=== PATIENT | female | born 1975 ===

== ENCOUNTER 2019-01-31 18:26 | Emergency (ER) | payer SELFPAY ==
[2019-01-31] MEDS ORDERED: NORMAL SALINE 1,000 ML IV.SOLN IV ONE (21:00)
[2019-01-31] MEDS ORDERED: TAMSULOSIN HCL 0.4 MG CAP.ER.24H PO ONE (21:00)
[2019-01-31] MEDS ORDERED: cefTRIAXone SODIUM 1 GM INJ ONE (21:00)
[2019-01-31] MEDS ORDERED: 0.9 % SODIUM CHLORIDE 50 ML IV.SOLN IV ONE (21:00)
[2019-01-31] MEDS ORDERED: KETOROLAC TROMETHAMINE 30 MG/1ML VIAL ONE (21:00)
[2019-02-10 08:53] LABS: BASOPHILS % 0.4 % (0.0-1.5); NEUTROPHILS # 5.9 # k/uL (1.4-7.7)
[2019-02-10 08:55] LABS: eGFR (Non-African) > 60
[2019-02-10 08:57] LABS: CANNABINOIDS NON NEGATIVE ng/mL (< 50)
[2019-02-10 08:58] LABS: APPEARANCE,URINE CLOUDY (CLEAR); COLOR,URINE YELLOW (YELLOW); METHYLENEDIOXYMETHAMPHETAMINE NEGATIVE ng/mL (<500); OCCULT BLOOD,URINE 2+ (NEGATIVE); PH URINE 6.5 (5.0 - 8.0); URINE HCG NEGATIVE (NEGATIVE); UROBILINOGEN URINE 0.2 Eu (0.2-1.0)
--- NOTE | 2019-02-22 13:33 | Diagnostic Imaging Report ---
SMITA SOLIS (COMMUNITY RECREATION COORDINATOR) - ER [facility] [address] [facility].[address] [id number] Report Submission Date: Jan 31, 2019 9:46:58 PM CDT Patient Study Name: IGNACIO CROWDER Date: Jan 31, 2019 9:18:00 PM CDT Modality Type: CT\SR Gender: F Description: CT A/P W/ CONTRAST : 71 Institution: [facility] Physician: SMITA SOLIS (COMMUNITY RECREATION COORDINATOR) - ER Computed tomography abdomen pelvis with contrast History: Left upper quadrant pain Findings: Transverse abdomen and pelvis sections are obtained after 90 mL intravenous Omnipaque 350. The lung bases, liver, pancreas, adrenals, spleen, right kidney, great vessels, mesenteric structures, and bowel loops are unremarkable. The appendix is normal. Cholecystectomy has been performed. L4-5 degenerative disc disease and disc bulging are observed. Mild left obstructive uropathy there is related to a 3 mm proximal ureteral stone. A small left renal cyst is present. Left renal collecting system and ureteral urothelial thickening raises the possibility of superimposed infection. Pelvic sections reveal borderline mural thickening of the sigmoid colon and rectum. The uterus is elongated. A 2.6 cm left adnexal cyst is present. The uterus and right ovary are otherwise normal. The urinary bladder is unremarkable. Impression: 1. 3 mm proximal left ureteral stone with mild obstructive uropathy. Left sided urothelial thickening raises the possibility of superimposed infection. Recommend correlation with urinalysis. 2. Possibly mild sigmoid colitis and proctitis. 3. Cholecystectomy, L4-5 spondylosis, and left ovarian follicular cyst. Electronically signed on Jan 31, 2019 9:46:58 PM CDT by: Bryson BLACKWOOD
== END 2019-01-31 22:04 ==
LOC: ED 18:26
DX: N20.0 Calculus of kidney (principal); R74.8 Abnormal levels of other serum enzymes
CPT/HCPCS: 74177; 80053; 80320; 80377; 81002; 81025; 82150; 83690; 85025; 99283; 99284; J0696; J1885; J7030; Q9967; G0480; G0481; S1016